=== PATIENT | male | born 1980 | race Caucasian/White ===

== ENCOUNTER → 2023-09-29 | Outpatient (CLI) | payer OTHER ==
--- NOTE | 2023-10-21 08:44 | MR ---
EXAMINATION TYPE: MR liver wo/w con DATE OF EXAM: 09/29/2023 9:08 PM CLINICAL INDICATION:Male, 43 years old with history of K76.9 LIVER DISEASE; PHH, Mass on Liver, Hx Sq uamous cell carcinoma COMPARISON: CT scan abdomen from 08/12/2023. TECHNIQUE: Multiplanar multi-sequence imaging was performed without contrast. Post contrast imaging was performed. Post IV contrast subtraction images were also submitted for review. IV Contrast: 9.5 cc Gadobutrol FINDINGS: LOWER CHEST: No gross irregularity. ABDOMEN Liver: No evidence for hepatic steatosis or cirrhosis. Signal dropout on chemical shift in phase imag ing. Multiple high T2 signal lesions are seen throughout the liver. No suspicious postcontrast enhanc ement. Subtraction imaging has some misregistration due to respiratory motion. Gallbladder and Bile ducts: No evidence for ductal dilation, or biliary stricture or evidence of chol edocholithiasis. The gallbladder is within normal limits. Pancreas: No ductal dilation. No evidence for solid mass. Spleen: Normal for size.Signal dropout on chemical shift in phase imaging. Small splenule is present. Adrenal glands: Unremarkable. Kidneys: No evidence for obstructive uropathy. No suspicious renal masses. Stomach and Bowel: No evidence for bowel wall thickening or evidence for obstruction. Peritoneum: No evidence of pneumoperitoneum or free fluid. Vasculature: No aortic aneurysm. Musculoskeletal: The osseous structures appear intact. Lymph Nodes: No gross evidence for lymphadenopathy. Abdominal wall: Unremarkable. IMPRESSION: 1. Scattered hepatic cysts without abnormal postcontrast enhancement. No suspicious observations. 2. Iron deposition within the liver and spleen.
== END | disposition home or self-care (01) ==
LOC: RADMRIMAIN 20:15
PROVIDERS: ATTEND Internal Medicine Gastroenterology
DX: K76.89 Other specified diseases of liver (principal); Z85.828 Personal history of other malignant neoplasm of skin
CPT/HCPCS: 74183; A9585

== ENCOUNTER 2024-10-17 09:32 | Day surgery (SDC) | payer OTHER ==
[~2024-10-17 09:32] MED LIST: LACTATED RINGERS 1,000 ML IV SCH; LIDOCAINE 1% (10MG/ML) FOR IV START INTRADERMA PRN
[2024-10-17 10:34] VITALS: TEMP 97.8
[2024-10-17] MEDS: LACTATED RINGERS 1,000 ML IV ONE (10:38)
[2024-10-17 10:51] LABS: Glucose,Whole Blood 77 mg/dL (70-110)
[2024-10-17] MEDS ORDERED: PROPOFOL 10 MG/ML 20 ML VIAL IV ONE (11:31)
--- NOTE | 2024-10-17 11:48 | P.PCN ---
Date of Procedure: 10/17/24 Procedure(s) Performed: BRIEF HISTORY: Patient is a 44-year-old pleasant white male scheduled for an elective colonoscopy as a part of screening for colon cancer. PROCEDURE PERFORMED: Colonoscopy. PREOPERATIVE DIAGNOSIS: Screening for colon cancer. IV sedation per Anesthesia. PROCEDURE: After informed consent was obtained, the patient, was brought into the endoscopy unit. IV sedation was administered by Anesthesia under continuous monitoring. Digital rectal examination was normal. Initially the Olympus CF-160 flexible video colonoscope was then inserted in the rectum, gradually advanced into the cecum without any difficulty. Careful examination was performed as the scope was gradually being withdrawn. Ileocecal valve and the appendiceal orifice were visualized and appeared normal. Prep was excellent. Mucosa of the cecum, ascending colon, transverse colon, descending colon, sigmoid colon, and rectum appeared normal. Scattered sigmoid diverticulosis. Retroflexion was performed in the rectum and small internal hemorrhoids were seen. The patient tolerated the procedure well. IMPRESSION: Normal-appearing colon from rectum to cecum with no evidence of colorectal neoplasia. Scattered sigmoid diverticulosis and small internal hemorrhoids RECOMMENDATIONS: Findings of this examination were discussed with the patient as well as his family. He was advised to have repeat screening colonoscopy in 10 years..
[2024-10-17] MEDS: IV FLUID CONTINUATION 1,000 ML IV ONE (11:52)
[2024-10-17 12:16] VITALS: BP 115/76; PULSE 59; RESP 18
== END 2024-10-17 12:23 | disposition home or self-care (01) ==
LOC: ORWHC2ENDO 09:32
PROVIDERS: ATTEND Internal Medicine Gastroenterology
DX: Z12.11 Encounter for screening for malignant neoplasm of colon (principal); K57.30 Diverticulosis of large intestine without perforation or abscess without bleeding; K64.8 Other hemorrhoids; F17.290 Nicotine dependence, other tobacco product, uncomplicated
CPT/HCPCS: 45378; J2704